=== PATIENT | female | born 1960 | race African-American/Black ===

== ENCOUNTER → 2023-01-14 08:05 | Outpatient (CLI) | payer OTHER, SELFPAY ==
--- NOTE | ~2023-01-14 | MMUS_ITS ---
EXAMINATION: MM diagnostic gregory BI w sharon, US breast BI complete HISTORY: Left diffuse breast pain TECHNIQUE: Full field and spot ML, MLO and CC 3-D tomosynthesis images of both breasts were performed and synthetic 2-D images were generated. CAD analysis was submitted and interpreted. High resolution bilateral complete breast ultrasound examination including all 4 quadrants and subareolar areas was performed. COMPARISON: 03/24/2022 bilateral screening mammogram BREAST PARENCHYMAL COMPOSITION: There are scattered areas of fibroglandular density. FINDINGS: MAMMOGRAPHIC FINDINGS: Stable benign appearing approximately 3 x 6 mm upper outer quadrant intramammary lymph node. No suspicious mass, architectural distortion, malignant microcalcifications, skin thickening or retra ction or significant change since 03/24/2022 is detected. ULTRASOUND: There is a circumscribed oval parallel approximately 3 x 5.7 x 4.2 mm hypoechoic solid lesion at 1-2: 00 6 cm from nipple, corresponding to the mammographically demonstrated benign-appearing intramammary lymph node. No suspicious mass or shadowing of either breast is detected. IMPRESSION: 1. Benign stable left intramammary lymph node.; No mammographic evidence of malignancy 2. Routine annual mammographic screening is recommended BI-RADS Category 2: Benign finding(s). Reviewed, dictated and finalized at location A. IMPRESSION: 1. Benign stable left intramammary lymph node.; No mammographic evidence of mal ignancy 2. Routine annual mammographic screening is recommended BI-RADS Category 2: Benign finding(s).
== END ==
PROVIDERS: PCP Obstetrics & Gynecology Gynecology; Visit Provider Obstetrics & Gynecology Gynecology
DX: N64.4 Mastodynia (principal)
CPT/HCPCS: 76641; 77062; 77066; G0279

== ENCOUNTER 2024-11-02 07:46 | Outpatient (CLI) | payer OTHER, SELFPAY ==
--- NOTE | ~2024-11-02 | MMUS_ITS ---
EXAMINATION: MM diagnostic gregory BI w sharon, US breast RT limited HISTORY: Right breast lump TECHNIQUE: 3-D tomosynthesis images of the breasts were performed and synthetic 2-D images were gener ated. CAD analysis was submitted and interpreted. High resolution limited right breast ultrasound was performed. COMPARISON: 01/14/2023, 03/24/2022, 02/04/2021 BREAST PARENCHYMAL COMPOSITION:Not Dense. There are scattered areas of fibroglandular density. FINDINGS: MAMMOGRAPHIC FINDINGS: Parenchymal pattern of both breasts is unchanged. No suspicious mass or distortion seen. No suspiciou s microcalcification. ULTRASOUND: Sonographic imaging at the area of concern near the 2:00 region demonstrates no solid or cystic abnor mality. No sonographic abnormality seen. IMPRESSION: No mammographic evidence for malignancy. No mammographic or sonographic correlate seen at the area o f clinical concern the right breast. BI-RADS Category 1: Negative Reviewed, dictated and finalized at location M. IMPRESSION: No mammographic evidence for malignancy. No mammographic or sonographic correl ate seen at the area of clinical concern the right breast. BI-RADS Category 1: Negative
== END 2024-11-02 07:47 | disposition home or self-care (01) ==
LOC: MICIMG 07:46
PROVIDERS: PCP Obstetrics & Gynecology Gynecology; Visit Provider Obstetrics & Gynecology Gynecology
DX: N63.10 Unspecified lump in the right breast, unspecified quadrant (principal)
CPT/HCPCS: 76642; 77062; 77066; G0279

== ENCOUNTER 2024-11-07 09:43 | Outpatient (CLI) | payer OTHER, SELFPAY ==
--- NOTE | ~2024-11-07 | US_ITS ---
EXAMINATION: US transvaginal INDICATION: Left lower quadrant pain Comparison:No prior studies for comparison. TECHNIQUE: Multiple endovaginal sonographic images of the pelvis performed. FINDINGS: The uterus is surgically absent. The right ovary is not visualized. The left ovary is unremarkable measuring 1.5 x 0.7 x 0.8 cm with n ormal Doppler signal. There is no free fluid in the pelvis. There are no abnormal masses seen on eit her side. IMPRESSION: 1. Unremarkable pelvic ultrasound status post hysterectomy. Reviewed, dictated and finalized at location A.
== END 2024-11-07 09:44 | disposition home or self-care (01) ==
LOC: MICIMG 09:43
PROVIDERS: PCP Obstetrics & Gynecology Gynecology; Visit Provider Obstetrics & Gynecology Gynecology
DX: R10.32 Left lower quadrant pain (principal); Z90.710 Acquired absence of both cervix and uterus
CPT/HCPCS: 76830